=== PATIENT | female | born 1935 | race Caucasian/White ===

== ENCOUNTER 2016-06-17 10:45 | Emergency (ER) | payer MEDICARE, MEDICAID ==
[2016-06-17] MEDS ORDERED: KETOROLAC 60 MG/2 ML VIAL IM ONE (13:07)
== END 2016-06-17 13:52 | disposition home or self-care (01) ==
LOC: ER 10:45
DX: M53.3 Sacrococcygeal disorders, not elsewhere classified (principal); I48.91 Unspecified atrial fibrillation; J44.9 Chronic obstructive pulmonary disease, unspecified; I11.0 Hypertensive heart disease with heart failure; E11.9 Type 2 diabetes mellitus without complications; Z93.3 Colostomy status; Z79.01 Long term (current) use of anticoagulants; Z79.899 Other long term (current) drug therapy; Z79.4 Long term (current) use of insulin; Z87.891 Personal history of nicotine dependence
CPT/HCPCS: 96372